=== PATIENT | female | born 1990 | race Caucasian/White ===

== ENCOUNTER 2017-07-10 13:50 | Emergency (ER) | payer MEDICAID ==
[~2017-07-10] VITALS: Ht 160 cm; Wt 72.1 kg
[~2017-07-10 13:50] MED LIST: None per pt
[2017-07-10 13:52] VITALS: BP 124/80
[2017-07-10] MEDS ORDERED: LIDOCAINE 1%, 20ML ONE (14:16)
== END 2017-07-10 14:45 | disposition home or self-care (01) ==
LOC: ED 14:35
DX: N76.4 Abscess of vulva (principal)
CPT/HCPCS: 56405

== ENCOUNTER 2018-04-21 18:54 | Emergency (ER) | payer MEDICAID ==
[~2018-04-21] VITALS: Ht 160 cm; Wt 72.0 kg
[~2018-04-21 18:54] MED LIST changes: +PREN1TAB28 PO
[2018-04-21] MEDS ORDERED: ASPI-515 PO (19:16)
[2018-04-21 19:42] LABS: MICROSCOPIC NOT IND
[2018-04-21 19:47] LABS: CULTURE INDICATED? NO
[2018-04-21 20:42] VITALS: BP 136/68
== END 2018-04-21 20:47 | disposition home or self-care (01) ==
LOC: ED 20:41
DX: O26.892 Other specified pregnancy related conditions, second trimester (principal)
CPT/HCPCS: 76815; 81003; 99285

== ENCOUNTER 2018-07-24 14:13 | Emergency (ER) | payer MEDICAID ==
[~2018-07-24] VITALS: Ht 160 cm; Wt 83.0 kg
[~2018-07-24 14:13] MED LIST changes: +ASPI-515 PO
[2018-07-24 14:28] VITALS: BP 141/86
[2018-07-24 15:04] LABS: BASOPHILS # (AUTO) 0.07 x10^3/uL (0-0.1); BASOPHILS % (AUTO) 1 % (0-1); EOSINOPHILS # (AUTO) 0.03 x10^3/uL (0-0.4); EOSINOPHILS % (AUTO) 0 % (1-7); LYMPHOCYTES # (AUTO) 1.25 x10^3/uL (1-3.4); LYMPHOCYTES % (AUTO) 11 % (22-44); MD NO; MEAN CORPUSCULAR HGB CONC 34.5 g/dL (32.4-35.8); MEAN CORPUSCULAR VOLUME 92.7 fL (80-100); MEAN PLATELET VOLUME 8.2 fL (7.4-10.4); MONOCYTES # (AUTO) 0.39 x10^3/uL (0.2-0.8); MONOCYTES % (AUTO) 4 % (2-9); NEUTROPHILS # (AUTO) 9.26 x10^3/uL (1.8-6.8); NEUTROPHILS % (AUTO) 84 % (42-75); PLATELET COUNT 182 x10^3/uL (130-400); RED BLOOD COUNT 4.25 x10^6/uL (3.82-5.3); RED CELL DISTRIBUTION WIDTH 13.9 % (9.6-15.2)
[2018-07-24 15:14] LABS: ALANINE AMINOTRANSFERASE 29 U/L (12-78); ALBUMIN 2.4 g/dL (3.4-5.0); ANION GAP 10 mmol/L (5-15); CALCIUM 8.4 mg/dL (8.5-10.1); CHLORIDE 106 mmol/L (98-107); CREATININE 0.66 mg/dL (0.55-1.02)
[2018-07-24 15:17] LABS: ALKALINE PHOSPHATASE 135 U/L (45-117); BILIRUBIN,TOTAL 0.4 mg/dL (0.2-1.0)
== END 2018-07-24 15:57 | disposition home or self-care (01) ==
LOC: ED 15:46
DX: O26.892 Other specified pregnancy related conditions, second trimester (principal); Z3A.33 33 weeks gestation of pregnancy; R42 Dizziness and giddiness
CPT/HCPCS: 36415; 80053; 85025; 99284

== ENCOUNTER 2018-07-24 14:48 | Outpatient (CLI) | payer MEDICAID ==
[~2018-07-24] VITALS: Ht 160 cm; Wt 80.5 kg
[2018-07-24 15:01] VITALS: BP 126/77
[2018-07-24 15:51] LABS: AMPHETAMINE SCREEN, URINE Negative (Negative); BARBITURATE SCREEN, URINE Negative (Negative); BENZODIAZEPINE SCREEN, URINE Negative (Negative); COCAINE SCREEN, URINE Negative (Negative); METHADONE SCREEN, URINE Negative (Negative); OPIATE SCREEN, URINE Negative (Negative)
[2018-07-24 16:01] LABS: CANNABINOID SCREEN, URINE Positive (Negative)
[2018-07-24 16:06] LABS: MICROSCOPIC INDICATED
== END 2018-07-24 17:04 | disposition home or self-care (01) ==
LOC: LDOP 14:48
PROVIDERS: ATTEND Obstetrics & Gynecology
DX: O26.893 Other specified pregnancy related conditions, third trimester (principal); Z3A.32 32 weeks gestation of pregnancy
CPT/HCPCS: 59025; 80307; 81001; 87086; 99201; G0463

== ENCOUNTER 2019-04-06 07:07 | Emergency (ER) | payer MEDICAID, OTHER ==
[~2019-04-06] VITALS: Ht 160 cm; Wt 75.3 kg
[~2019-04-06 07:07] MED LIST changes: +IBUP-1222 PO; +OXYC-302 PO; +SENN-92 PO; +SIME80TA16 PO
[2019-04-06 07:13] VITALS: BP 144/87
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
--- NOTE | 2019-04-06 07:58 | NUR ---
ER PROVIDER IN TO EVAL
--- NOTE | 2019-04-06 08:45 | NUR ---
Patient/Caregiver given discharge instructions and they have confirmed that they understand the instructions. Patient ambulatory with steady gait.
== END 2019-04-06 08:46 | disposition home or self-care (01) ==
LOC: ED 08:04
DX: J18.9 Pneumonia, unspecified organism (principal); Z77.22 Contact with and (suspected) exposure to environmental tobacco smoke (acute) (chronic)
CPT/HCPCS: 99281

== ENCOUNTER 2019-08-07 15:39 | Emergency (ER) | payer MEDICAID ==
[~2019-08-07] VITALS: Ht 160 cm; Wt 76.6 kg
[2019-08-07 15:56] VITALS: BP 148/90
== END 2019-08-07 16:42 | disposition home or self-care (01) ==
LOC: ED 16:36
DX: H66.91 Otitis media, unspecified, right ear (principal); J06.9 Acute upper respiratory infection, unspecified; J02.9 Acute pharyngitis, unspecified; F41.1 Generalized anxiety disorder
CPT/HCPCS: 99283